=== PATIENT | male | born 1960 | race African-American/Black ===

== ENCOUNTER 2020-01-18 12:14 | Inpatient (IN) | payer OTHER ==
--- NOTE | 2020-01-18 12:42 | BHS.RME ---
Substance Use & Tx History - Substance Use History Alcohol Substance amount: 2-3 pints Vodka Frequency of use: Daily Substance route: Oral Date of Last Use: 01/18/20 (First drink age 19 y. No seizures. Blackouts, last was 2 weeks ago. 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) Physical/Psych/Mental Status - Behavior General Behavior: Increased activity (restlessness, agitation) Eye Contact: Normal - Cooperativeness Cooperativeness: Cooperative - Thinking Thought Processes: Tight Thought content: Future oriented - Physical Health Problems Is patient presently having any pain?: Yes (4 years: right hand) Does patient presently have any injuries (include location): No Does patient currently have a fever: No CIWA Nausea/Vomitin-No Nausea/No Vomiting Muscle Tremors: 2 Anxiety: 2 Agitation: 1-Slight > Activity Paroxysmal Sweats: 3 Orientation: 0-Oriented Tacttile Disturbances: 0-None Auditory Disturbances: 0-None Visual Disturbances: 0-None Headache: 4-Moderately Severe CIWA-Ar Total Score: 12
--- NOTE | 2020-01-18 13:20 | HP ---
CIWA Score Nausea/Vomitin-No Nausea/No Vomiting Muscle Tremors: 2 Anxiety: 2 Agitation: 1-Slight > Activity Paroxysmal Sweats: 3 Orientation: 0-Oriented Tacttile Disturbances: 0-None Auditory Disturbances: 0-None Visual Disturbances: 0-None Headache: 4-Moderately Severe CIWA-Ar Total Score: 12 - Admission Criteria [facility] Guidelines: Admission for Medically Managed Detox: Requires at least one of the followin. CIWA greater than 12 2. Seizures within the past 24 hours 3. Delirium tremens within the past 24 hours 4. Hallucinations within the past 24 hours 5. Acute intervention needed for co occurring medical disorder 6. Acute intervention needed for co occurring psychiatric disorder 7. Severe withdrawal that cannot be handled at a lower level of care (continued vomiting, continued diarrhea, abnormal vital signs) requiring intravenous medication and/or fluids 8. Admitting History and Physical - Admission History of Present Illness: Mr. Nagy presents to [facility] REQUESTING FOR DETOX FROM ALCOHOL. PMH:HTN- on atenolol PSH: None PSYCH: None SOC/DOMICILED: Shared apt with friend Legal: None Substance Use & Tx History - Substance Use History Alcohol Substance amount: 2-3 pints Vodka Frequency of use: Daily Substance route: Oral Date of Last Use: 01/18/20 (First drink age 19 y. No seizures. Blackouts, last was 2 weeks ago. Admits to eye pipefitter) First use: Age 19 History Source: Patient Limitations to Obtaining History: No Limitations - Past Surgical History Past Surgical History: Yes: None - Alcohol/Substance Use Hx Alcohol Use: Yes Number of Drinks Daily: 3 (3 pints of vodka) - Social History Other Social History: Patient is on Social Security disability Admission [facility] Exam Limitations: No Limitations - Ebola screening Have you traveled outside of the country in the last 21 days: No Have you had contact with anyone from an Ebola affected area: No Have you been sick,other than usual withdrawal symptoms: No Do you have a fever: No - Review of Systems Constitutional: No Symptoms Reported EENT: reports: No Symptoms Reported, Other (Rt. sided facial pain) Respiratory: reports: No Symptoms reported Cardiac: reports: No Symptoms Reported GI: reports: No Symptoms Reported : reports: No Symptoms Reported Musculoskeletal: reports: Gout (pt says he is on colchicine) Integumentary: reports: No Symptoms Reported Neuro: reports: No Symptoms reported Endocrine: reports: No Symptoms Reported Hematology: reports: No Symptoms Reported Psychiatric: reports: Judgement Intact, Orientated x3, Agitated, Anxious Other Systems: Reviewed and Negative Patient History - Patient Medical History Hx Anemia: No Hx Hypertension: Yes (taking atenolol) - Smoking Cessation Smoking history: Former smoker Have you smoked in the past 12 months: No If you are a former smoker, when did you quit?: 1998 Initiated information on smoking cessation: No Admission Physical Exam [facility] - Physical General Appearance: Yes: Within Normal Limits, No Apparent Distress, Nourished, Appropriately Dressed HEENTM: Yes: Within Normal Limits, EOMI, Hearing grossly Normal, Normocephalic, Normal Voice, JEFF Respiratory: Yes: Within Normal Limits, Chest Non-Tender, Lungs Clear, Normal Breath Sounds, No Respiratory Distress, No Accessory Muscle Use Neck: Yes: Within Normal Limits, No masses,lesions,Nodules Breast: Yes: Breast Exam Deferred Cardiology: Yes: Within Normal Limits, Regular Rhythm, Regular Rate, S1, S2 Abdominal: Yes: Within Normal Limits, Normal Bowel Sounds, Non Tender, Soft, Distended (with fat) Genitourinary: Yes: Within Normal Limits Back: Yes: Within Normal Limits, Normal Inspection Musculoskeletal: Yes: Within Normal Limits Extremities: Yes: Non-Tender, Other (b/l pitting pedal edema up to lower 2/3 legs) Neurological: Yes: Within Normal Limits, Fully Oriented, Alert, Normal Mood/Affect Integumentary: Yes: Within Normal Limits, Pitting Edema (b/l pitting pedal up to lower 2/3 leg), Other (multiple seborrheic dermatitis on upper back) - Diagnostic (1) Hypertension Current Visit: Yes Status: Acute (2) Alcohol dependence Current Visit: Yes Status: Acute Cleared for Admission [facility] - Detox or Rehab [facility] Level of Care: Medically Managed Screened but not Admitted - Documentation of Visit Screened but not Admitted: No Breathalyzer - Breathalyzer Breathalyzer: 0.022 Urine Drug Screen - Test Device Lot number: [id number] Expiration date: 02/25/21 - Control Is test valid?: Yes - Results Drug screen NEGATIVE: No Urine drug screen results: OXY-Oxycodone Inpatient Rehab Admission - Rehab Decision to Admit Inpatient rehab admission?: No
[2020-01-18] MEDS ORDERED: BISMUTH SUBSALICYLATE 524 MG/30 ML UD PO PRN (13:49)
[2020-01-18] MEDS ORDERED: MAG HYDROX/AL HYDROX/SIMETH 30 ML UNIT-DOSE CUP PO PRN (13:49)
[2020-01-18] MEDS ORDERED: MENTHOL/PHENOL 1 EACH UD MM PRN (13:49)
[2020-01-18] MEDS ORDERED: IBUPROFEN 400 MG TABLET (FP) PO PRN (13:49)
[2020-01-18] MEDS ORDERED: chlordiazePOXIDE HCL 25 MG CAPSULE PO PRN (13:49)
[2020-01-18] MEDS ORDERED: ACETAMINOPHEN 325 MG TABLET (FP) PO PRN (13:49)
[2020-01-18] MEDS ORDERED: METHOCARBAMOL 500 MG TABLET PO PRN (13:49)
[2020-01-18] MEDS ORDERED: MAGNESIUM CITRATE 300 ML BOTTLE PO PRN (13:49)
[2020-01-18] MEDS ORDERED: MAGNESIUM HYDROX 2400MG/30ML ORAL SUSPENSION 30 ML CUP PO PRN (13:49)
[2020-01-18 13:52] VITALS: BMI 33.4
--- NOTE | 2020-01-18 14:19 | PN ---
Teaching Attending Note Name of Resident: Tyrell Shaffer ATTENDING PHYSICIAN STATEMENT I saw and evaluated the patient. I reviewed the resident's note and discussed the case with the resident. I agree with the resident's findings and plan as documented. SUBJECTIVE: I agree with subjective findings of resident OBJECTIVE: I agree with objective findings of resident. ASSESSMENT AND PLAN: I agree with plan for detox for this patient.
[2020-01-18] MEDS ORDERED: ATENOLOL 50 MG TABLET (FP) PO ONE (14:21)
--- NOTE | 2020-01-18 14:52 | EKG ---
Test Reason : Blood Pressure : / mmHG Vent. Rate : 092 BPM Atrial Rate : 092 BPM P-R Int : 126 ms QRS Dur : 074 ms QT Int : 356 ms P-R-T Axes : 072 071 019 degrees QTc Int : 440 ms NORMAL SINUS RHYTHM NONSPECIFIC T WAVE ABNORMALITY ABNORMAL ECG NO PREVIOUS ECGS AVAILABLE Confirmed by KAY MARTÍNEZ, TL ([id number]) on 01/18/2020 2:51:32 PM Referred By: Confirmed By:TL VILLANUEVA MD
[2020-01-18] MEDS: ONDANSETRON *ODT* 4 MG TABLET SL SCH ×2 (15:12→22:21)
[2020-01-18] MEDS: hydrOXYzine PAMOATE 25 MG CAPSULE (FP) PO SCH ×3 (15:12→22:21)
[2020-01-18] MEDS: PRENATAL VITAMINS W/ FOLIC ACID TABLET (FP) PO SCH (15:12)
[2020-01-18 17:27] LABS: HEMATOCRIT 41.1 % (35.4-49); HEMOGLOBIN 13.5 GM/dL (11.7-16.9); MCH 28.2 pg (25.7-33.7); MCHC 32.9 g/dl (32.0-35.9); MEAN CELL VOLUME 85.6 fl (80-96); MEAN PLT VOLUME 9.9 fl (7.5-11.1); PLATELET COUNT 262 K/MM3 (134-434); RDW 15.3 % (11.9-15.9); WHITE BLOOD COUNT 9.4 K/mm3 (4.0-10.0)
[2020-01-18 17:33] LABS: ALBUMIN 4.5 g/dl (3.4-5.0); BILIRUBIN,TOTAL 1.1 mg/dL (0.2-1); BLOOD UREA NITROGEN 16.4 mg/dL (7-18); CALCIUM 10.3 mg/dL (8.5-10.1); CREATININE 1.2 mg/dL (0.55-1.3); POTASSIUM 4.1 mmol/L (3.5-5.1); TOT PROT 7.5 g/dl (6.4-8.2)
[2020-01-18] MEDS: chlordiazePOXIDE HCL 25 MG CAPSULE PO SCH ×2 (17:44→22:21)
[2020-01-18] MEDS: THIAMINE HCL 100 MG TABLET (FP) PO SCH (22:21)
[2020-01-18] MEDS: MELATONIN 5 MG TABLETS PO SCH (22:21)
[2020-01-19] MEDS: chlordiazePOXIDE HCL 25 MG CAPSULE PO SCH ×4 (06:20→22:09)
[2020-01-19] MEDS: ONDANSETRON *ODT* 4 MG TABLET SL SCH ×3 (06:20→22:08)
[2020-01-19] MEDS: hydrOXYzine PAMOATE 25 MG CAPSULE (FP) PO SCH ×5 (06:20→22:08)
[2020-01-19] MEDS ORDERED: ATENOLOL 25 MG TABLET (FP) PO SCH (10:00)
[2020-01-19] MEDS: PRENATAL VITAMINS W/ FOLIC ACID TABLET (FP) PO SCH (10:11)
[2020-01-19] MEDS ORDERED: ATENOLOL 50 MG TABLET (FP) PO SCH (10:14)
--- NOTE | 2020-01-19 10:21 | PN ---
"S CIWA - CIWA Score Nausea/Vomitin-Mild Nausea/No Vomiting (no vomiting) Muscle Tremors: 4-Moderate,w/Arms Extend Anxiety: 4-Mod. Anxious/Guarded Agitation: 3 Paroxysmal Sweats: 1-Minimal Palms Moist Orientation: 0-Oriented Tacttile Disturbances: 0-None Auditory Disturbances: 0-None Visual Disturbances: 0-None Headache: 0-None Present CIWA-Ar Total Score: 13 B[facility] Progress Note (SOAP) Subjective: Pt c/o withdrawals- nausea body aches diarrhea intermittent sleep hot/cold chills intermittent sleep Pt reports he takes percocets 40 mg daily for pain. Reports he takes it for Gout pain with his prescriber and wants to get off and detox if necessary while in detox. Confirmed with [facility] at [facility]: that pt on Amlodipine 10 mg po daily as well as Percocet 10-325 mg po 4 times daily. Last p/u on 12/26/19 with 120 tabs. PNP Search did not show opioid Rx as can be seen in search below. Confidential Drug Utilization Report Search Terms: lois lambert, 02/18/1968earch Date: 01/19/2020 10:17:05 AM The Drug Utilization Report below displays all of the controlled substance prescriptions, if any, that your patient has filled in the last twelve months. The information displayed on this report is compiled from pharmacy submissions to the Department, and accurately reflects the information as submitted by the pharmacies. This report was requested by: Argelia Yanez | Reference #: [id number] There are no results for the search terms that you entered. Objective: 01/19/20 11:43 Vital Signs - 24 hr 01/18/20 01/18/20 01/18/20 13:47 15:10 16:33 Temperature 98.1 F 97.7 F 98.2 F Pulse Rate 99 H 94 H 95 H Respiratory 18 18 17 Rate Blood Pressure 141/85 150/88 133/81 O2 Sat by Pulse 96 Oximetry (%) 01/18/20 01/19/20 21:00 06:35 Temperature 98.0 F 97.5 F L Pulse Rate 92 H 87 Respiratory 20 18 Rate Blood Pressure 150/83 135/76 O2 Sat by Pulse 98 97 Oximetry (%) Laboratory Tests 01/18/20 01/18/20 01/18/20 14:00 14:00 14:00 WBC 9.4 RBC 4.80 Hgb 13.5 Hct 41.1 MCV 85.6 MCH 28.2 MCHC 32.9 RDW 15.3 Plt Count 262 MPV 9.9 Sodium 138 Potassium 4.1 Chloride 103 Carbon Dioxide 22 Anion Gap 13 BUN 16.4 Creatinine 1.2 Est GFR (CKD-EPI)AfAm 77.33 Est GFR (CKD-EPI)NonAf 66.72 Random Glucose 121 H Calcium 10.3 H Total Bilirubin 1.1 H AST 68 H ALT 50 Alkaline Phosphatase 107 Total Protein 7.5 Albumin 4.5 Syphilis Serology Reactive A* RPR Titer 01/18/20 14:00 WBC RBC Hgb Hct MCV MCH MCHC RDW Plt Count MPV Sodium Potassium Chloride Carbon Dioxide Anion Gap BUN Creatinine Est GFR (CKD-EPI)AfAm Est GFR (CKD-EPI)NonAf Random Glucose Calcium Total Bilirubin AST ALT Alkaline Phosphatase Total Protein Albumin Syphilis Serology RPR Titer Reactive 1:1 H Utox on admission was (+)oxycodone Assessment: 01/19/20 11:43 withdrawal sx Plan: cont detox increase po fluids maintain safety Start moderate Methadone taper"
[2020-01-19] MEDS ORDERED: cloNIDine HCL 0.1 MG TABLET PO PRN (12:35)
[2020-01-19] MEDS ORDERED: METHADONE HCL 10 MG TABLET (FOR DETOX USE ONLY) PO ONE (13:00)
--- NOTE | 2020-01-19 13:56 | PN ---
Teaching Attending Note Name of Resident: Tyrell Shaffer ATTENDING PHYSICIAN STATEMENT I saw and evaluated the patient. I reviewed the resident's note and discussed the case with the resident. I agree with the resident's findings and plan as documented. SUBJECTIVE: I agree with resident's subjective findings OBJECTIVE: I agree with resident's objective findings ASSESSMENT AND PLAN: I agree with resident's detox plans.
[2020-01-19] MEDS: ATENOLOL 50 MG TABLET (FP) PO SCH (15:08)
--- NOTE | 2020-01-19 15:49 | PN ---
BHS COWS - Scale Resting Pulse: 1= [place] 81-100 Sweatin= Chills/Flushing Restless Observation: 3= Extraneous Movement Pupil Size: 0= Normal to Room Light Bone or Joint Aches: 4=Acute Joint/Muscle Pain Runny Nose/ Eye Tearin= Nasal Congestion GI Upset > 30mins: 2= Nausea/Diarrhea Tremor Observation of Outstretched Hands: 2= Slight Tremor Visible Yawning Observation: 0= None Anxiety or Irritability: 2=Irritable/Anxious Goose Flesh Skin: 0=Smooth Skin COWS Score: 16
[2020-01-19] MEDS: ACETAMINOPHEN 325 MG TABLET (FP) PO PRN (17:59)
[2020-01-19] MEDS: MELATONIN 5 MG TABLETS PO SCH (22:08)
[2020-01-19] MEDS: COLCHICINE 0.6 MG CAP PO SCH (22:08)
[2020-01-19] MEDS: THIAMINE HCL 100 MG TABLET (FP) PO SCH (22:09)
[2020-01-20] MEDS: hydrOXYzine PAMOATE 25 MG CAPSULE (FP) PO SCH ×5 (06:00→22:13)
[2020-01-20] MEDS: chlordiazePOXIDE HCL 25 MG CAPSULE PO SCH ×4 (06:00→22:12)
[2020-01-20] MEDS: ONDANSETRON *ODT* 4 MG TABLET SL SCH ×3 (06:00→22:12)
[2020-01-20] MEDS ORDERED: amLODIPine BESYLATE 10 MG TABLET (FP) PO SCH (10:00)
[2020-01-20] MEDS ORDERED: METHADONE HCL 5 MG TABLET (FOR DETOX USE ONLY) PO ONE (10:00)
--- NOTE | 2020-01-20 10:45 | PN ---
[facility] CIWA - CIWA Score Nausea/Vomitin-No Nausea/No Vomiting Muscle Tremors: 2 Anxiety: 2 Agitation: 1-Slight > Activity Paroxysmal Sweats: 2 Orientation: 0-Oriented Tacttile Disturbances: 0-None Auditory Disturbances: 2-Mild Harshness/Frighten Visual Disturbances: 0-None Headache: 0-None Present CIWA-Ar Total Score: 9 S COWS - Scale Resting Pulse: 1= [place] 81-100 Sweatin= Chills/Flushing Restless Observation: 1= Difficult to Sit Still Pupil Size: 0= Normal to Room Light Bone or Joint Aches: 1= Mild Discomfort Runny Nose/ Eye Tearin= None GI Upset > 30mins: 0= None Tremor Observation of Outstretched Hands: 2= Slight Tremor Visible Yawning Observation: 0= None Anxiety or Irritability: 1=Feels Anxious/Irritable Goose Flesh Skin: 0=Smooth Skin COWS Score: 7 [facility] Progress Note (SOAP) Subjective: Complaints of body aches, chills, anxiety and tremors. Objective: 01/20/20 10:43 Vital Signs 01/20/20 06:50 Temperature 97.8 F Pulse Rate 86 Respiratory 18 Rate Blood Pressure 114/64 O2 Sat by Pulse 97 Oximetry (%) Laboratory Last Values WBC 9.4 K/mm3 (4.0-10.0) 01/18/20 14:00 RBC 4.80 M/mm3 (4.00-5.60) 01/18/20 14:00 Hgb 13.5 GM/dL (11.7-16.9) 01/18/20 14:00 Hct 41.1 % (35.4-49) 01/18/20 14:00 MCV 85.6 fl (80-96) 01/18/20 14:00 MCH 28.2 pg (25.7-33.7) 01/18/20 14:00 MCHC 32.9 g/dl (32.0-35.9) 01/18/20 14:00 RDW 15.3 % (11.9-15.9) 01/18/20 14:00 Plt Count 262 K/MM3 (134-434) 01/18/20 14:00 MPV 9.9 fl (7.5-11.1) 01/18/20 14:00 Sodium 138 mmol/L (136-145) 01/18/20 14:00 Potassium 4.1 mmol/L (3.5-5.1) 01/18/20 14:00 Chloride 103 mmol/L (98-107) 01/18/20 14:00 Carbon Dioxide 22 mmol/L (21-32) 01/18/20 14:00 Anion Gap 13 MMOL/L (8-16) 01/18/20 14:00 BUN 16.4 mg/dL (7-18) 01/18/20 14:00 Creatinine 1.2 mg/dL (0.55-1.3) 01/18/20 14:00 Est GFR (CKD-EPI)AfAm 77.33 01/18/20 14:00 Est GFR (CKD-EPI)NonAf 66.72 01/18/20 14:00 Random Glucose 121 mg/dL (74-106) H 01/18/20 14:00 Calcium 10.3 mg/dL (8.5-10.1) H 01/18/20 14:00 Total Bilirubin 1.1 mg/dL (0.2-1) H 01/18/20 14:00 AST 68 U/L (15-37) H 01/18/20 14:00 ALT 50 U/L (13-61) 01/18/20 14:00 Alkaline Phosphatase 107 U/L (45-117) 01/18/20 14:00 Total Protein 7.5 g/dl (6.4-8.2) 01/18/20 14:00 Albumin 4.5 g/dl (3.4-5.0) 01/18/20 14:00 Syphilis Serology Reactive (NONREACTIVE) A* 01/18/20 14:00 RPR Titer Reactive 1:1 (NONREACTIVE) H 01/18/20 14:00 COVID-19 ([facility]) Not detected (Not Detected) 01/18/20 14:30 Labs noted with RPR reactive ( already addressed). Assessment: 01/20/20 10:45 Alert and oriented x3, in no acute respiratory distress. Full ROM, ambulatory without assistance. Withdrawal symptoms. Plan: Continue detox protocol.
[2020-01-20] MEDS: ASPIRIN COATED 81 MG TABLET.EC PO SCH (10:56)
[2020-01-20] MEDS: PRENATAL VITAMINS W/ FOLIC ACID TABLET (FP) PO SCH (10:56)
[2020-01-20] MEDS: amLODIPine BESYLATE 10 MG TABLET (FP) PO SCH (10:56)
[2020-01-20] MEDS: ATENOLOL 50 MG TABLET (FP) PO SCH (10:57)
[2020-01-20] MEDS: PANTOPRAZOLE 20 MG TABLET PO SCH (10:57)
[2020-01-20] MEDS: COLCHICINE 0.6 MG CAP PO SCH ×2 (10:59→23:35)
[2020-01-20] MEDS: ACETAMINOPHEN 325 MG TABLET (FP) PO PRN (17:38)
[2020-01-20] MEDS: THIAMINE HCL 100 MG TABLET (FP) PO SCH (22:13)
[2020-01-20] MEDS: ATORVASTATIN CA 20 MG TABLET (FP) PO SCH (22:13)
[2020-01-20] MEDS: MELATONIN 5 MG TABLETS PO SCH (22:13)
[2020-01-21] MEDS ORDERED: chlordiazePOXIDE HCL 10 MG CAPSULE PO PRN
[2020-01-21] MEDS: hydrOXYzine PAMOATE 25 MG CAPSULE (FP) PO SCH ×5 (05:54→22:05)
[2020-01-21] MEDS: chlordiazePOXIDE HCL 10 MG CAPSULE PO SCH ×4 (05:54→22:04)
[2020-01-21] MEDS: ONDANSETRON *ODT* 4 MG TABLET SL SCH (05:54)
[2020-01-21] MEDS ORDERED: METHADONE HCL 10 MG TABLET (FOR DETOX USE ONLY) PO ONE (10:00)
[2020-01-21] MEDS: amLODIPine BESYLATE 10 MG TABLET (FP) PO SCH (10:37)
[2020-01-21] MEDS: PRENATAL VITAMINS W/ FOLIC ACID TABLET (FP) PO SCH (10:37)
[2020-01-21] MEDS: ASPIRIN COATED 81 MG TABLET.EC PO SCH (10:37)
[2020-01-21] MEDS: COLCHICINE 0.6 MG CAP PO SCH ×2 (10:38→22:05)
[2020-01-21] MEDS: PANTOPRAZOLE 20 MG TABLET PO SCH (10:38)
[2020-01-21] MEDS: ATENOLOL 50 MG TABLET (FP) PO SCH (10:54)
--- NOTE | 2020-01-21 11:00 | PN ---
[facility] CIWA - CIWA Score Nausea/Vomitin-Mild Nausea/No Vomiting Muscle Tremors: 1-None Visible, but Ignacio Anxiety: 1-Mildly Anxious Agitation: 1-Slight > Activity Paroxysmal Sweats: No Perspiration Orientation: 0-Oriented Tacttile Disturbances: 0-None Auditory Disturbances: 0-None Visual Disturbances: 2-Mild Sensitivity Headache: 0-None Present CIWA-Ar Total Score: 6 S COWS - Scale Resting Pulse: 1= [place] 81-100 Sweatin= No chills or Flushing Restless Observation: 0= Sits Still Pupil Size: 1= Pupils >than Normal Bone or Joint Aches: 1= Mild Discomfort Runny Nose/ Eye Tearin= None GI Upset > 30mins: 2= Nausea/Diarrhea Tremor Observation of Outstretched Hands: 0= None Yawning Observation: 0= None Anxiety or Irritability: 1=Feels Anxious/Irritable Goose Flesh Skin: 0=Smooth Skin COWS Score: 6 S Progress Note (SOAP) Subjective: 59 years old male admitted on 01/18/20 for alcohol and opiate withdrawal sx management treating with librium and methadone detox regiment mild nausea reject zofran discontinue zofran every eight hours encourage medication assisted treatment program recommend case picker narcan from pharmacy Objective: 01/21/20 11:03 Vital Signs - 24 hr 01/20/20 01/20/20 01/20/20 12:55 16:55 20:00 Temperature 98.5 F 98.2 F 98.0 F Pulse Rate 96 H 90 81 Respiratory 20 18 18 Rate Blood Pressure 136/78 126/77 114/69 O2 Sat by Pulse 95 95 Oximetry (%) 01/21/20 01/21/20 06:00 10:00 Temperature 98.2 F 98.2 F Pulse Rate 86 90 Respiratory 18 20 Rate Blood Pressure 132/75 130/70 O2 Sat by Pulse 96 Oximetry (%) Laboratory Tests 01/18/20 01/18/20 01/18/20 14:00 14:00 14:00 WBC 9.4 RBC 4.80 Hgb 13.5 Hct 41.1 MCV 85.6 MCH 28.2 MCHC 32.9 RDW 15.3 Plt Count 262 MPV 9.9 Sodium 138 Potassium 4.1 Chloride 103 Carbon Dioxide 22 Anion Gap 13 BUN 16.4 Creatinine 1.2 Est GFR (CKD-EPI)AfAm 77.33 Est GFR (CKD-EPI)NonAf 66.72 Random Glucose 121 H Calcium 10.3 H Total Bilirubin 1.1 H AST 68 H ALT 50 Alkaline Phosphatase 107 Total Protein 7.5 Albumin 4.5 Syphilis Serology Reactive A* RPR Titer COVID-19 ([facility]) 01/18/20 01/18/20 14:00 14:30 WBC RBC Hgb Hct MCV MCH MCHC RDW Plt Count MPV Sodium Potassium Chloride Carbon Dioxide Anion Gap BUN Creatinine Est GFR (CKD-EPI)AfAm Est GFR (CKD-EPI)NonAf Random Glucose Calcium Total Bilirubin AST ALT Alkaline Phosphatase Total Protein Albumin Syphilis Serology RPR Titer Reactive 1:1 H COVID-19 ([facility]) Not detected fasting pending 01/21/20 11:05 history of syphilis reactive and treated Assessment: 01/21/20 11:05 alcohol and opiate withdrawal Plan: librium and methadone regiments
[2020-01-21] MEDS: ACETAMINOPHEN 325 MG TABLET (FP) PO PRN (14:02)
[2020-01-21] MEDS: ATORVASTATIN CA 20 MG TABLET (FP) PO SCH (22:04)
[2020-01-21] MEDS: THIAMINE HCL 100 MG TABLET (FP) PO SCH (22:05)
[2020-01-21] MEDS: MELATONIN 5 MG TABLETS PO SCH (22:05)
[2020-01-22] MEDS ORDERED: METHADONE HCL 5 MG TABLET (FOR DETOX USE ONLY) PO ONE (06:00)
[2020-01-22] MEDS: chlordiazePOXIDE HCL 10 MG CAPSULE PO SCH ×2 (06:09→17:41)
[2020-01-22] MEDS: hydrOXYzine PAMOATE 25 MG CAPSULE (FP) PO SCH ×5 (06:09→22:17)
[2020-01-22] MEDS: ACETAMINOPHEN 325 MG TABLET (FP) PO PRN ×2 (06:12→10:52)
[2020-01-22] MEDS: COLCHICINE 0.6 MG CAP PO SCH ×2 (10:48→23:34)
[2020-01-22] MEDS: PRENATAL VITAMINS W/ FOLIC ACID TABLET (FP) PO SCH (10:48)
[2020-01-22] MEDS: PANTOPRAZOLE 20 MG TABLET PO SCH (10:49)
[2020-01-22] MEDS: amLODIPine BESYLATE 10 MG TABLET (FP) PO SCH (10:49)
[2020-01-22] MEDS: ATENOLOL 50 MG TABLET (FP) PO SCH (10:49)
[2020-01-22] MEDS: ASPIRIN COATED 81 MG TABLET.EC PO SCH (10:49)
--- NOTE | 2020-01-22 12:08 | PN ---
S CIWA - CIWA Score Nausea/Vomitin-No Nausea/No Vomiting Muscle Tremors: 2 Anxiety: 4-Mod. Anxious/Guarded Agitation: 0-Normal Activity Paroxysmal Sweats: 1-Minimal Palms Moist Orientation: 0-Oriented Tacttile Disturbances: 0-None Auditory Disturbances: 0-None Visual Disturbances: 0-None Headache: 0-None Present CIWA-Ar Total Score: 7 [facility] Progress Note (SOAP) Subjective: Pt c/o anxiety sl tremors body aches sl sweats/chills Objective: 01/22/20 12:06 Vital Signs - 24 hr 01/21/20 01/21/20 01/21/20 13:22 17:02 20:31 Temperature 98.2 F 98.0 F 98.6 F Pulse Rate 95 H 97 H 94 H Respiratory 20 18 18 Rate Blood Pressure 133/74 139/81 109/62 O2 Sat by Pulse 96 95 Oximetry (%) 01/22/20 01/22/20 01/22/20 06:06 07:30 09:30 Temperature 98.6 F 97.7 F Pulse Rate 108 H 92 H 105 H Respiratory 18 18 18 Rate Blood Pressure 153/91 130/75 141/92 O2 Sat by Pulse 96 97 Oximetry (%) Laboratory Tests 01/18/20 01/18/20 01/18/20 14:00 14:00 14:00 WBC 9.4 RBC 4.80 Hgb 13.5 Hct 41.1 MCV 85.6 MCH 28.2 MCHC 32.9 RDW 15.3 Plt Count 262 MPV 9.9 Sodium 138 Potassium 4.1 Chloride 103 Carbon Dioxide 22 Anion Gap 13 BUN 16.4 Creatinine 1.2 Est GFR (CKD-EPI)AfAm 77.33 Est GFR (CKD-EPI)NonAf 66.72 Random Glucose 121 H Fasting Glucose Calcium 10.3 H Total Bilirubin 1.1 H AST 68 H ALT 50 Alkaline Phosphatase 107 Total Protein 7.5 Albumin 4.5 Syphilis Serology Reactive A* RPR Titer COVID-19 ([facility]) 01/18/20 01/18/20 01/22/20 14:00 14:30 08:00 WBC RBC Hgb Hct MCV MCH MCHC RDW Plt Count MPV Sodium Potassium Chloride Carbon Dioxide Anion Gap BUN Creatinine Est GFR (CKD-EPI)AfAm Est GFR (CKD-EPI)NonAf Random Glucose Fasting Glucose 139 H Calcium Total Bilirubin AST ALT Alkaline Phosphatase Total Protein Albumin Syphilis Serology RPR Titer Reactive 1:1 H COVID-19 ([facility]) Not detected Assessment: 01/22/20 12:07 mild withdrawal sx Plan: cont detox increase po fluids maintain safety
[2020-01-22] MEDS: THIAMINE HCL 100 MG TABLET (FP) PO SCH (22:17)
[2020-01-22] MEDS: MELATONIN 5 MG TABLETS PO SCH (22:17)
[2020-01-22] MEDS: ATORVASTATIN CA 20 MG TABLET (FP) PO SCH (22:17)
[2020-01-23] MEDS ORDERED: chlordiazePOXIDE HCL 10 MG CAPSULE PO ONE (05:00)
[2020-01-23] MEDS: hydrOXYzine PAMOATE 25 MG CAPSULE (FP) PO SCH ×2 (06:21→10:04)
[2020-01-23] MEDS: COLCHICINE 0.6 MG CAP PO SCH (10:04)
[2020-01-23] MEDS: ASPIRIN COATED 81 MG TABLET.EC PO SCH (10:04)
[2020-01-23] MEDS: amLODIPine BESYLATE 10 MG TABLET (FP) PO SCH (10:04)
[2020-01-23] MEDS: PANTOPRAZOLE 20 MG TABLET PO SCH (10:04)
[2020-01-23] MEDS: PRENATAL VITAMINS W/ FOLIC ACID TABLET (FP) PO SCH (10:04)
[2020-01-23] MEDS: ATENOLOL 50 MG TABLET (FP) PO SCH (10:04)
[2020-01-23 10:32] VITALS: BP 126/74; PULSE 95; TEMP 97.7
--- NOTE | 2020-01-23 10:41 | DS ---
[facility] Detox Discharge Summary Admission Date: 01/18/20 Discharge Date: 01/23/20 - History Present History: Alcohol Dependence, Opioid Dependence Additional Comments: Pt reports he has own meds at home. Pt to follow up with medical provider at [facility] for medical management. Pertinent Past History: HTN HLD Hx Syphilis Hx Gout Hx Arthritis GERD - Physical Exam Results Vital Signs: Vital Signs Temperature 97.7 F 01/23/20 09:02 Pulse Rate 95 H 01/23/20 09:02 Respiratory Rate 18 01/23/20 09:02 Blood Pressure 126/74 01/23/20 09:02 O2 Sat by Pulse Oximetry (%) 96 01/23/20 09:02 Alert o x 3 nad oob ambulating with steady gait cardiac;s1 s2, rrr lungs:ctab abdomen:+++fatty,+bs,nt,nd extremities:no edema;skin intact. Pertinent Admission Physical Exam Findings: Laboratory Tests 01/18/20 01/18/20 01/18/20 14:00 14:00 14:00 WBC 9.4 RBC 4.80 Hgb 13.5 Hct 41.1 MCV 85.6 MCH 28.2 MCHC 32.9 RDW 15.3 Plt Count 262 MPV 9.9 Sodium 138 Potassium 4.1 Chloride 103 Carbon Dioxide 22 Anion Gap 13 BUN 16.4 Creatinine 1.2 Est GFR (CKD-EPI)AfAm 77.33 Est GFR (CKD-EPI)NonAf 66.72 Random Glucose 121 H Fasting Glucose Calcium 10.3 H Total Bilirubin 1.1 H AST 68 H ALT 50 Alkaline Phosphatase 107 Total Protein 7.5 Albumin 4.5 Syphilis Serology Reactive A* RPR Titer COVID-19 ([facility]) 01/18/20 01/18/20 01/22/20 14:00 14:30 08:00 WBC RBC Hgb Hct MCV MCH MCHC RDW Plt Count MPV Sodium Potassium Chloride Carbon Dioxide Anion Gap BUN Creatinine Est GFR (CKD-EPI)AfAm Est GFR (CKD-EPI)NonAf Random Glucose Fasting Glucose 139 H Calcium Total Bilirubin AST ALT Alkaline Phosphatase Total Protein Albumin Syphilis Serology RPR Titer Reactive 1:1 H COVID-19 ([facility]) Not detected - Treatment Hospital Course: Detox Protocol Followed, Detoxed Safely, Responded well, Discharged Condition Good, Rehab Referral Accepted Patient has Accepted a Rehab Referral to: [facility] [place] - Medication Discharge Medications: Ambulatory Orders Atenolol [Tenormin -] 50 mg PO DAILY 01/18/20 Amlodipine Besylate [Norvasc -] 10 mg PO DAILY 01/19/20 Aspirin Coated [Ecotrin -] 81 mg PO DAILY 01/19/20 Atorvastatin Calcium [Lipitor] 20 mg PO DAILY 01/19/20 Colchicine 0.6 mg PO BID 01/19/20 Haloperidol [Haldol -] 5 mg PO TID 01/19/20 Naproxen 500 mg PO BID 01/19/20 Omeprazole 20 mg PO DAILY 01/19/20 Sertraline HCl 100 mg PO DAILY 01/19/20 Naloxone HCl [Narcan] 4 mg NS ASDIR PRN #1 spray 01/21/20 - Diagnosis (1) Alcohol dependence with uncomplicated withdrawal Status: Acute (2) Opioid dependence, uncomplicated Status: Acute (3) Hypertension Status: Acute Qualifiers: Hypertension type: unspecified Qualified Code(s): I10 - Essential (primary) hypertension (4) Hyperlipidemia Status: Chronic Qualifiers: Hyperlipidemia type: unspecified Qualified Code(s): E78.5 - Hyperlipidemia, unspecified (5) Hx of gastroesophageal reflux (GERD) Status: Chronic (6) Personal history of gout Status: Chronic - AMA Did Patient Leave Against Medical Advice: No
== END 2020-01-23 10:10 | disposition home or self-care (01) | DRG 773 ==
LOC: YASAS 12:14 → Y5N DETOX 13:26
PROVIDERS: ADMIT Allergy & Immunology; ATTEND Allergy & Immunology
PROC: HZ2ZZZZ Detoxification Services for Substance Abuse Treatment (ICD-10-PCS; principal; 2020-01-18)
DX: F10.230 Alcohol dependence with withdrawal, uncomplicated (principal); F11.20 Opioid dependence, uncomplicated; E78.5 Hyperlipidemia, unspecified; I10 Essential (primary) hypertension; K21.9 Gastro-esophageal reflux disease without esophagitis; M10.9 Gout, unspecified; Z20.2 Contact with and (suspected) exposure to infections with a predominantly sexual mode of transmission; Z86.19 Personal history of other infectious and parasitic diseases
CPT/HCPCS: 36415; 71046-TC-FY; 80053; 82947; 85027; 86593; 86780; 93005; 93010; Q0162; U0003

== ENCOUNTER 2020-09-03 09:41 | Inpatient (IN) | payer OTHER ==
[2020-09-03 10:47] VITALS: BMI 20.9
[2020-09-03] MEDS ORDERED: IBUPROFEN 400 MG TABLET (FP) PO PRN (11:32)
[2020-09-03] MEDS ORDERED: chlordiazePOXIDE HCL 25 MG CAPSULE PO PRN (11:32)
[2020-09-03] MEDS ORDERED: ACETAMINOPHEN 325 MG TABLET (FP) PO PRN ×2 (11:32)
[2020-09-03] MEDS ORDERED: MAGNESIUM HYDROX 2400MG/30ML ORAL SUSPENSION 30 ML CUP PO PRN (11:32)
[2020-09-03] MEDS ORDERED: MENTHOL/PHENOL 1 EACH UD MM PRN (11:32)
[2020-09-03] MEDS ORDERED: MAG HYDROX/AL HYDROX/SIMETH 30 ML UNIT-DOSE CUP PO PRN (11:32)
[2020-09-03] MEDS ORDERED: BISMUTH SUBSALICYLATE 262 MG/15 ML BTL PO PRN (11:32)
[2020-09-03] MEDS ORDERED: NICOTINE POLACRILEX 2 MG GUM BUC PRN (11:32)
[2020-09-03] MEDS ORDERED: ONDANSETRON *ODT* 4 MG TABLET SL PRN (11:32)
[2020-09-03] MEDS ORDERED: METHOCARBAMOL 500 MG TABLET PO PRN (11:32)
[2020-09-03] MEDS ORDERED: MAGNESIUM CITRATE 300 ML BOTTLE PO PRN (11:32)
[2020-09-03] MEDS: PRENATAL VITAMINS W/ FOLIC ACID TABLET (FP) PO SCH (12:09)
[2020-09-03] MEDS: chlordiazePOXIDE HCL 25 MG CAPSULE PO SCH ×3 (12:10→23:06)
[2020-09-03] MEDS: hydrOXYzine PAMOATE 25 MG CAPSULE (FP) PO SCH ×3 (14:26→23:06)
[2020-09-03 14:28] LABS: HEMOGLOBIN 14.1 GM/dL (11.7-16.9); MCH 27.9 pg (25.7-33.7); MCHC 33.4 g/dl (32.0-35.9); MEAN CELL VOLUME 83.5 fl (80-96); MEAN PLT VOLUME 9.8 fl (7.5-11.1); PLATELET COUNT 245 K/MM3 (134-434); RBC 5.03 M/mm3 (4.00-5.60); RDW 15.2 % (11.9-15.9); WHITE BLOOD COUNT 8.4 K/mm3 (4.0-10.0)
[2020-09-03 14:29] LABS: ALBUMIN 4.5 g/dl (3.4-5.0); BLOOD UREA NITROGEN 18.2 mg/dL (7-18); CALCIUM 9.9 mg/dL (8.5-10.1)
[2020-09-03 14:32] LABS: CREATININE 1.2 mg/dL (0.55-1.3)
[2020-09-03 14:34] LABS: BILIRUBIN,TOTAL 1.1 mg/dL (0.2-1); TOT PROT 7.6 g/dl (6.4-8.2)
[2020-09-03] MEDS ORDERED: MELATONIN 5 MG TABLETS PO SCH (22:00)
[2020-09-03] MEDS ORDERED: THIAMINE HCL 100 MG TABLET (FP) PO SCH (22:00)
[2020-09-04] MEDS: chlordiazePOXIDE HCL 25 MG CAPSULE PO SCH ×2 (05:22→11:38)
[2020-09-04] MEDS: hydrOXYzine PAMOATE 25 MG CAPSULE (FP) PO SCH ×2 (05:23→11:33)
[2020-09-04] MEDS ORDERED: chlordiazePOXIDE HCL 25 MG CAPSULE PO ONE (11:22)
[2020-09-04] MEDS: PRENATAL VITAMINS W/ FOLIC ACID TABLET (FP) PO SCH (11:37)
[2020-09-04] MEDS ORDERED: cloNIDine HCL 0.1 MG TABLET PO PRN (11:37)
[2020-09-04] MEDS ORDERED: amLODIPine BESYLATE 10 MG TABLET (FP) PO SCH (11:45)
[2020-09-04] MEDS ORDERED: ATENOLOL 50 MG TABLET (FP) PO SCH (11:45)
[2020-09-04] MEDS ORDERED: ASPIRIN 81 MG CHEWABLE TABLETS PO SCH (11:45)
[2020-09-04] MEDS ORDERED: ATORVASTATIN CA 20 MG TABLET (FP) PO SCH (11:45)
[2020-09-04 13:02] VITALS: BP 140/90; PULSE 110; TEMP 97.3
[2020-09-04] MEDS ORDERED: COLCHICINE 0.6 MG TAB PO SCH (22:00)
[2020-09-05] MEDS ORDERED: chlordiazePOXIDE HCL 25 MG CAPSULE PO SCH (05:00)
[2020-09-06] MEDS ORDERED: chlordiazePOXIDE HCL 10 MG CAPSULE PO PRN
[2020-09-06] MEDS ORDERED: chlordiazePOXIDE HCL 10 MG CAPSULE PO SCH (05:00)
[2020-09-07] MEDS ORDERED: chlordiazePOXIDE HCL 10 MG CAPSULE PO SCH (05:00)
[2020-09-08] MEDS ORDERED: chlordiazePOXIDE HCL 10 MG CAPSULE PO ONE (05:00)
== END 2020-09-04 14:10 | disposition left against medical advice (07) | DRG 770 ==
LOC: YASAS 09:41 → Y3N 11:16
PROVIDERS: ADMIT Allergy & Immunology; ATTEND Allergy & Immunology
PROC: HZ2ZZZZ Detoxification Services for Substance Abuse Treatment (ICD-10-PCS; principal; 2020-09-03)
DX: F10.230 Alcohol dependence with withdrawal, uncomplicated (principal); F11.20 Opioid dependence, uncomplicated; F32.9 Major depressive disorder, single episode, unspecified; E78.5 Hyperlipidemia, unspecified; I10 Essential (primary) hypertension; K21.9 Gastro-esophageal reflux disease without esophagitis; M10.9 Gout, unspecified; Z86.19 Personal history of other infectious and parasitic diseases
CPT/HCPCS: 36415; 80053; 85027; 86593; 86780; C9803; J0735; U0003

== ENCOUNTER 2021-09-29 11:22 | Inpatient (IN) | payer OTHER ==
[2021-09-29] MEDS ORDERED: NICOTINE 10 MG CARTRIDGE (INHALER) IH PRN (12:03)
[2021-09-29] MEDS ORDERED: LOPERAMIDE HCL 2 MG CAPSULE PO PRN (12:03)
[2021-09-29] MEDS ORDERED: diazePAM 5 MG TABLET PO PRN (12:03)
[2021-09-29] MEDS ORDERED: IBUPROFEN 400 MG TABLET (FP) PO PRN (12:03)
[2021-09-29] MEDS ORDERED: cloNIDine HCL 0.1 MG TABLET PO ONE (12:03)
[2021-09-29] MEDS ORDERED: MAGNESIUM CITRATE 300 ML BOTTLE PO PRN (12:03)
[2021-09-29] MEDS ORDERED: MENTHOL/PHENOL 1 EACH UD MM PRN (12:03)
[2021-09-29] MEDS ORDERED: MAG HYDROX/AL HYDROX/SIMETH 30 ML UNIT-DOSE CUP PO PRN (12:03)
[2021-09-29] MEDS ORDERED: chlordiazePOXIDE HCL 25 MG CAPSULE PO PRN (12:03)
[2021-09-29] MEDS ORDERED: BUPRENORPHINE HCL 150 MCG, BUPRENORPHINE HCL 75 MCG BC ONE (12:03)
[2021-09-29] MEDS ORDERED: ACETAMINOPHEN 325 MG TABLET (FP) PO PRN ×2 (12:03)
[2021-09-29] MEDS ORDERED: DICYCLOMINE HCL 10 MG CAPSULE PO PRN (12:03)
[2021-09-29] MEDS ORDERED: MAGNESIUM HYDROX 2400MG/30ML ORAL SUSPENSION 30 ML CUP PO PRN (12:03)
[2021-09-29] MEDS ORDERED: BISMUTH SUBSALICYLATE 524 MG/30 ML PO PRN (12:03)
[2021-09-29] MEDS ORDERED: ONDANSETRON *ODT* 4 MG TABLET SL PRN (12:03)
[2021-09-29] MEDS ORDERED: BUPRENORPHINE HCL 150 MCG FILM BC ONE (12:44)
[2021-09-29] MEDS ORDERED: BUPRENORPHINE HCL 75 MCG FILM BC ONE (12:44)
[2021-09-29] MEDS: PRENATAL VITAMINS W/ FOLIC ACID TABLET (FP) PO SCH (15:31)
[2021-09-29] MEDS: hydrOXYzine PAMOATE 25 MG CAPSULE (FP) PO SCH ×3 (15:31→22:18)
[2021-09-29] MEDS ORDERED: cloNIDine HCL 0.1 MG TABLET PO PRN (16:03)
[2021-09-29 16:12] LABS: ALBUMIN 4.9 g/dl (3.4-5.0); CALCIUM 10.5 mg/dL (8.5-10.1)
[2021-09-29 16:13] LABS: BLOOD UREA NITROGEN 12.8 mg/dL (7-18)
[2021-09-29 16:15] LABS: CREATININE 1.7 mg/dL (0.55-1.3)
[2021-09-29 16:17] LABS: BILIRUBIN,TOTAL 0.9 mg/dL (0.2-1)
[2021-09-29 16:19] LABS: HEMATOCRIT 42.6 % (35.4-49); HEMOGLOBIN 14.2 GM/dL (11.7-16.9); MCH 28.1 pg (25.7-33.7); MCHC 33.4 g/dl (32.0-35.9); MEAN CELL VOLUME 84.2 fl (80-96); MEAN PLT VOLUME 8.9 fl (7.5-11.1); PLATELET COUNT 290 10^3/uL (134-434); RBC 5.06 M/mm3 (4.00-5.60); RDW 15.5 % (11.9-15.9); WHITE BLOOD COUNT 9.4 K/mm3 (4.0-10.0)
[2021-09-29] MEDS: chlordiazePOXIDE HCL 25 MG CAPSULE PO SCH ×2 (17:45→22:18)
[2021-09-29 19:06] VITALS: BMI 32.8
[2021-09-29] MEDS: MELATONIN 5 MG TABLETS PO SCH (22:18)
[2021-09-29] MEDS: THIAMINE HCL 100 MG TABLET (FP) PO SCH (22:18)
[2021-09-29] MEDS: COLCHICINE 0.6 MG TAB PO SCH (22:18)
[2021-09-30] MEDS ORDERED: BUPRENORPHINE HCL 150 MCG FILM BC ONE (04:44)
[2021-09-30] MEDS ORDERED: BUPRENORPHINE HCL 75 MCG FILM BC ONE (04:45)
[2021-09-30] MEDS ORDERED: BUPRENORPHINE HCL 150 MCG, BUPRENORPHINE HCL 75 MCG BC SCH (06:00)
[2021-09-30] MEDS: chlordiazePOXIDE HCL 25 MG CAPSULE PO SCH ×4 (06:06→22:12)
[2021-09-30] MEDS: hydrOXYzine PAMOATE 25 MG CAPSULE (FP) PO SCH ×5 (06:06→22:12)
[2021-09-30] MEDS: amLODIPine BESYLATE 10 MG TABLET (FP) PO SCH (10:15)
[2021-09-30] MEDS: PRENATAL VITAMINS W/ FOLIC ACID TABLET (FP) PO SCH (10:15)
[2021-09-30] MEDS: ASPIRIN 81 MG CHEWABLE TABLETS PO SCH (10:15)
[2021-09-30] MEDS: ATORVASTATIN CA 20 MG TABLET (FP) PO SCH (10:15)
[2021-09-30] MEDS: COLCHICINE 0.6 MG TAB PO SCH ×2 (10:17→22:12)
[2021-09-30] MEDS: ATENOLOL 50 MG TABLET (FP) PO SCH (10:17)
[2021-09-30] MEDS: PANTOPRAZOLE 20 MG TABLET PO SCH (10:19)
[2021-09-30] MEDS ORDERED: ATENOLOL 50 MG TABLET (FP) PO ONE (14:00)
[2021-09-30] MEDS: THIAMINE HCL 100 MG TABLET (FP) PO SCH (22:12)
[2021-09-30] MEDS: MELATONIN 5 MG TABLETS PO SCH (22:13)
[2021-10-01] MEDS: chlordiazePOXIDE HCL 25 MG CAPSULE PO SCH ×4 (05:48→23:11)
[2021-10-01] MEDS ORDERED: methaDONE HCL 10 MG TABLET (FOR DETOX USE ONLY) PO ONE (06:00)
[2021-10-01] MEDS ORDERED: BUPRENORPHINE HCL 450 MCG FILM BC SCH (06:00)
[2021-10-01] MEDS: hydrOXYzine PAMOATE 25 MG CAPSULE (FP) PO SCH ×5 (07:40→23:11)
[2021-10-01] MEDS: PANTOPRAZOLE 20 MG TABLET PO SCH (10:09)
[2021-10-01] MEDS: PRENATAL VITAMINS W/ FOLIC ACID TABLET (FP) PO SCH (10:09)
[2021-10-01] MEDS: ATORVASTATIN CA 20 MG TABLET (FP) PO SCH (10:10)
[2021-10-01] MEDS: amLODIPine BESYLATE 10 MG TABLET (FP) PO SCH (10:10)
[2021-10-01] MEDS: ATENOLOL 50 MG TABLET (FP) PO SCH (10:10)
[2021-10-01] MEDS: COLCHICINE 0.6 MG TAB PO SCH ×2 (10:10→23:11)
[2021-10-01] MEDS: ASPIRIN 81 MG CHEWABLE TABLETS PO SCH (10:10)
[2021-10-01 16:09] LABS: SARS-CoV-2 NAA Not Detected (Not Detected)
[2021-10-01] MEDS: METHOCARBAMOL 500 MG TABLET PO PRN (18:26)
[2021-10-01] MEDS: MELATONIN 5 MG TABLETS PO SCH (23:11)
[2021-10-01] MEDS: THIAMINE HCL 100 MG TABLET (FP) PO SCH (23:11)
[2021-10-02] MEDS ORDERED: chlordiazePOXIDE HCL 10 MG CAPSULE PO PRN
[2021-10-02] MEDS: hydrOXYzine PAMOATE 25 MG CAPSULE (FP) PO SCH ×5 (05:33→22:24)
[2021-10-02] MEDS: chlordiazePOXIDE HCL 10 MG CAPSULE PO SCH ×4 (05:33→22:24)
[2021-10-02] MEDS ORDERED: BUPRENORPHINE/NALOXONE 4 MG/1 MG FILM PACKET SL SCH (06:00)
[2021-10-02] MEDS: PRENATAL VITAMINS W/ FOLIC ACID TABLET (FP) PO SCH (10:12)
[2021-10-02] MEDS: COLCHICINE 0.6 MG TAB PO SCH ×2 (10:13→22:24)
[2021-10-02] MEDS: ASPIRIN 81 MG CHEWABLE TABLETS PO SCH (10:13)
[2021-10-02] MEDS: amLODIPine BESYLATE 10 MG TABLET (FP) PO SCH (10:13)
[2021-10-02] MEDS: ATORVASTATIN CA 20 MG TABLET (FP) PO SCH (10:13)
[2021-10-02] MEDS: ATENOLOL 50 MG TABLET (FP) PO SCH (10:13)
[2021-10-02] MEDS: PANTOPRAZOLE 20 MG TABLET PO SCH (10:13)
[2021-10-02] MEDS: METHOCARBAMOL 500 MG TABLET PO PRN ×2 (10:15→18:13)
[2021-10-02] MEDS: THIAMINE HCL 100 MG TABLET (FP) PO SCH (22:24)
[2021-10-02] MEDS: MELATONIN 5 MG TABLETS PO SCH (22:24)
[2021-10-03] MEDS ORDERED: chlordiazePOXIDE HCL 10 MG CAPSULE PO SCH (05:00)
[2021-10-03] MEDS: hydrOXYzine PAMOATE 25 MG CAPSULE (FP) PO SCH (05:33)
[2021-10-03] MEDS ORDERED: BUPRENORPHINE/NALOXONE 8 MG/2 MG FILM PACKET SL ONE (06:00)
[2021-10-03 06:44] VITALS: BP 127/77; PULSE 82; TEMP 97.5
[2021-10-04] MEDS ORDERED: chlordiazePOXIDE HCL 10 MG CAPSULE PO ONE (05:00)
== END 2021-10-03 09:16 | disposition home or self-care (01) | DRG 773 ==
LOC: YASAS 11:22 → Y6N 12:33
PROVIDERS: ADMIT Allergy & Immunology; ATTEND Allergy & Immunology
PROC: HZ2ZZZZ Detoxification Services for Substance Abuse Treatment (ICD-10-PCS; principal; 2021-09-29)
DX: F10.230 Alcohol dependence with withdrawal, uncomplicated (principal); F11.23 Opioid dependence with withdrawal; F13.230 Sedative, hypnotic or anxiolytic dependence with withdrawal, uncomplicated; E78.5 Hyperlipidemia, unspecified; I10 Essential (primary) hypertension; M10.9 Gout, unspecified; Z86.19 Personal history of other infectious and parasitic diseases; Z87.19 Personal history of other diseases of the digestive system; Z87.891 Personal history of nicotine dependence
CPT/HCPCS: 36415; 71045-TC-FY; 80053; 85027; 86593; 86780; 87811; C9803-CS; J0735; U0003; U0005

== ENCOUNTER 2022-01-28 19:23 | Inpatient (IN) | payer OTHER ==
[2022-01-29 00:14] VITALS: BMI 32.5
[2022-01-29] MEDS ORDERED: DICYCLOMINE HCL 10 MG CAPSULE PO PRN (03:58)
[2022-01-29] MEDS ORDERED: ONDANSETRON *ODT* 4 MG TABLET SL PRN (03:58)
[2022-01-29] MEDS ORDERED: IBUPROFEN 600 MG TABLET (FP) PO PRN (03:58)
[2022-01-29] MEDS ORDERED: MAG HYDROX/AL HYDROX/SIMETH 30 ML UNIT-DOSE CUP PO PRN (03:58)
[2022-01-29] MEDS ORDERED: BENZOCAINE/MENTHOL (CHLORASEPTIC ) LOZENGE MM PRN (03:58)
[2022-01-29] MEDS ORDERED: MAGNESIUM HYDROX 2400MG/30ML ORAL SUSPENSION 30 ML CUP PO PRN (03:58)
[2022-01-29] MEDS ORDERED: LOPERAMIDE HCL 2 MG CAPSULE PO PRN (03:58)
[2022-01-29] MEDS ORDERED: IBUPROFEN 400 MG TABLET (FP) PO PRN (03:58)
[2022-01-29] MEDS ORDERED: ACETAMINOPHEN 325 MG TABLET (FP) PO PRN (03:58)
[2022-01-29] MEDS ORDERED: BISMUTH SUBSALICYLATE 524 MG/30 ML PO PRN (03:58)
[2022-01-29] MEDS ORDERED: MAGNESIUM CITRATE 300 ML BOTTLE PO PRN (03:58)
[2022-01-29] MEDS ORDERED: cloNIDine HCL 0.1 MG TABLET PO ONE ×2 (04:01→09:06)
[2022-01-29] MEDS: ACETAMINOPHEN 325 MG TABLET (FP) PO PRN (04:55)
[2022-01-29] MEDS ORDERED: BUPRENORPHINE HCL 150 MCG, BUPRENORPHINE HCL 75 MCG BC PRN (09:06)
[2022-01-29] MEDS ORDERED: BUPRENORPHINE HCL 150 MCG, BUPRENORPHINE HCL 75 MCG BC ONE (09:06)
[2022-01-29] MEDS: METHOCARBAMOL 500 MG TABLET PO PRN ×2 (10:26→18:20)
[2022-01-29] MEDS: ASPIRIN 81 MG CHEWABLE TABLETS PO SCH (10:26)
[2022-01-29] MEDS: amLODIPine BESYLATE 10 MG TABLET (FP) PO SCH (10:26)
[2022-01-29] MEDS: PRENATAL VITAMINS W/ FOLIC ACID TABLET (FP) PO SCH (10:27)
[2022-01-29] MEDS: ATENOLOL 50 MG TABLET (FP) PO SCH (11:16)
[2022-01-29] MEDS: diazePAM 5 MG TABLET PO PRN ×3 (11:20→22:53)
[2022-01-29] MEDS ORDERED: cloNIDine HCL 0.1 MG TABLET PO PRN (13:06)
[2022-01-29 14:32] LABS: HEMATOCRIT 40.7 % (35.4-49); HEMOGLOBIN 13.4 GM/dL (11.7-16.9); MCH 26.8 pg (25.7-33.7); MEAN CELL VOLUME 81.2 fl (80-96); MEAN PLT VOLUME 9.4 fl (7.5-11.1); PLATELET COUNT 243 10^3/uL (134-434); RBC 5.01 M/mm3 (4.00-5.60)
[2022-01-29 15:23] LABS: ALBUMIN 4.1 g/dl (3.4-5.0)
[2022-01-29 15:26] LABS: CREATININE 1.4 mg/dL (0.55-1.3)
[2022-01-29 15:27] LABS: TOT PROT 6.9 g/dl (6.4-8.2)
[2022-01-29 15:28] LABS: CALCIUM 9.5 mg/dL (8.5-10.1)
[2022-01-29 15:29] LABS: BLOOD UREA NITROGEN 15.3 mg/dL (7-18)
[2022-01-29] MEDS: THIAMINE HCL 100 MG TABLET (FP) PO SCH (22:53)
[2022-01-29] MEDS: MELATONIN 5 MG TABLETS PO SCH (22:53)
[2022-01-30] MEDS ORDERED: BUPRENORPHINE HCL 150 MCG, BUPRENORPHINE HCL 75 MCG BC PRN
[2022-01-30] MEDS: BUPRENORPHINE HCL 150 MCG, BUPRENORPHINE HCL 75 MCG BC SCH ×2 (06:01→18:08)
[2022-01-30] MEDS: ACETAMINOPHEN 325 MG TABLET (FP) PO PRN (06:02)
[2022-01-30] MEDS: ASPIRIN 81 MG CHEWABLE TABLETS PO SCH (10:49)
[2022-01-30] MEDS: PRENATAL VITAMINS W/ FOLIC ACID TABLET (FP) PO SCH (10:50)
[2022-01-30] MEDS: METHOCARBAMOL 500 MG TABLET PO PRN (10:50)
[2022-01-30] MEDS: amLODIPine BESYLATE 10 MG TABLET (FP) PO SCH (10:50)
[2022-01-30] MEDS: diazePAM 5 MG TABLET PO PRN ×2 (10:50→22:17)
[2022-01-30] MEDS: ATENOLOL 50 MG TABLET (FP) PO SCH (10:51)
[2022-01-30] MEDS ORDERED: ASPIRIN 81 MG PO SCH (20:30)
[2022-01-30] MEDS ORDERED: ATENOLOL PO SCH (22:00)
[2022-01-30] MEDS: THIAMINE HCL 100 MG TABLET (FP) PO SCH (22:17)
[2022-01-30] MEDS: ATORVASTATIN CA 20 MG TABLET (FP) PO SCH (22:18)
[2022-01-30] MEDS: MELATONIN 5 MG TABLETS PO SCH (22:18)
[2022-01-31] MEDS ORDERED: BUPRENORPHINE HCL 450 MCG FILM BC PRN
[2022-01-31] MEDS: BUPRENORPHINE HCL 450 MCG FILM BC SCH ×2 (05:38→17:55)
[2022-01-31] MEDS: ACETAMINOPHEN 325 MG TABLET (FP) PO PRN (05:40)
[2022-01-31] MEDS: COLCHICINE 0.6 MG TAB PO SCH ×2 (10:46→22:39)
[2022-01-31] MEDS: amLODIPine BESYLATE 10 MG TABLET (FP) PO SCH (10:46)
[2022-01-31] MEDS: ATENOLOL 50 MG TABLET (FP) PO SCH (10:46)
[2022-01-31] MEDS: PRENATAL VITAMINS W/ FOLIC ACID TABLET (FP) PO SCH (10:46)
[2022-01-31] MEDS: ASPIRIN 81 MG CHEWABLE TABLETS PO SCH (10:46)
[2022-01-31] MEDS: METHOCARBAMOL 500 MG TABLET PO PRN (17:55)
[2022-01-31] MEDS: MELATONIN 5 MG TABLETS PO SCH (22:39)
[2022-01-31] MEDS: ATORVASTATIN CA 20 MG TABLET (FP) PO SCH (22:39)
[2022-01-31] MEDS: THIAMINE HCL 100 MG TABLET (FP) PO SCH (22:39)
[2022-02-01] MEDS: BUPRENORPHINE/NALOXONE 4 MG/1 MG FILM PACKET SL SCH ×2 (05:41→17:35)
[2022-02-01] MEDS: METHOCARBAMOL 500 MG TABLET PO PRN (10:50)
[2022-02-01] MEDS: ASPIRIN 81 MG CHEWABLE TABLETS PO SCH (10:51)
[2022-02-01] MEDS: COLCHICINE 0.6 MG TAB PO SCH ×2 (10:51→22:10)
[2022-02-01] MEDS: PRENATAL VITAMINS W/ FOLIC ACID TABLET (FP) PO SCH (10:51)
[2022-02-01] MEDS: ATENOLOL 50 MG TABLET (FP) PO SCH (10:51)
[2022-02-01] MEDS: amLODIPine BESYLATE 10 MG TABLET (FP) PO SCH (10:51)
[2022-02-01 18:36] VITALS: RESP 18
[2022-02-01] MEDS: THIAMINE HCL 100 MG TABLET (FP) PO SCH (22:10)
[2022-02-01] MEDS: MELATONIN 5 MG TABLETS PO SCH (22:10)
[2022-02-01] MEDS: ATORVASTATIN CA 20 MG TABLET (FP) PO SCH (22:10)
[2022-02-02] MEDS ORDERED: BUPRENORPHINE/NALOXONE 8 MG/2 MG FILM PACKET SL ONE (06:00)
[2022-02-02 07:44] VITALS: BP 135/76; PULSE 96; TEMP 97.1
== END 2022-02-02 09:00 | disposition home or self-care (01) | DRG 773 ==
LOC: YASAS 19:23 → Y6N 01-29 04:05 → UNDOADMIN 01-29 04:05
PROVIDERS: ADMIT Allergy & Immunology; ATTEND Surgery
PROC: HZ2ZZZZ Detoxification Services for Substance Abuse Treatment (ICD-10-PCS; principal; 2022-01-29)
DX: F11.23 Opioid dependence with withdrawal (principal); F10.230 Alcohol dependence with withdrawal, uncomplicated; F31.9 Bipolar disorder, unspecified; I10 Essential (primary) hypertension; E78.5 Hyperlipidemia, unspecified; M10.9 Gout, unspecified; Z87.891 Personal history of nicotine dependence; Z86.11 Personal history of tuberculosis; Z86.19 Personal history of other infectious and parasitic diseases
CPT/HCPCS: 36415; 71046-TC-FY; 80053; 85027; 86593; 86780; 87811; 93005; 93010; C9803-CS; U0003; U0005

== ENCOUNTER 2022-08-14 10:44 | Inpatient (IN) | payer OTHER ==
[2022-08-14 11:15] VITALS: BMI 34.2
[2022-08-14] MEDS ORDERED: BISMUTH SUBSALICYLATE 524 MG/30 ML PO PRN (14:36)
[2022-08-14] MEDS ORDERED: NALOXONE HCL (KLOXXADO) 8 MG SPRAY NS PRN (14:36)
[2022-08-14] MEDS ORDERED: IBUPROFEN 600 MG TABLET (FP) PO PRN (14:36)
[2022-08-14] MEDS ORDERED: LOPERAMIDE HCL 2 MG CAPSULE PO PRN (14:36)
[2022-08-14] MEDS ORDERED: NALOXONE HCL 0.4 MG/ML VIAL IM PRN (14:36)
[2022-08-14] MEDS ORDERED: BENZOCAINE/MENTHOL (CHLORASEPTIC ) LOZENGE MM PRN (14:36)
[2022-08-14] MEDS ORDERED: ACETAMINOPHEN 325 MG TABLET (FP) PO PRN (14:36)
[2022-08-14] MEDS ORDERED: DICYCLOMINE HCL 10 MG CAPSULE PO PRN (14:36)
[2022-08-14] MEDS ORDERED: MAG HYDROX/AL HYDROX/SIMETH 30 ML UNIT-DOSE CUP PO PRN (14:36)
[2022-08-14] MEDS ORDERED: POLYETHYLENE GLYCOL (HEALTHYLAX) 3350 17 GM PACKET PO PRN (14:36)
[2022-08-14] MEDS ORDERED: ONDANSETRON *ODT* 4 MG TABLET SL PRN (14:36)
[2022-08-14] MEDS ORDERED: MAGNESIUM HYDROX 2400MG/30ML ORAL SUSPENSION 30 ML CUP PO PRN (14:36)
[2022-08-14] MEDS ORDERED: hydrOXYzine PAMOATE 25 MG CAPSULE (FP) PO PRN (14:36)
[2022-08-14] MEDS ORDERED: IBUPROFEN 400 MG TABLET (FP) PO PRN (14:36)
[2022-08-14] MEDS ORDERED: methaDONE HCL 10 MG TABLET (FOR DETOX USE ONLY) PO ONE (14:39)
[2022-08-14] MEDS: chlordiazePOXIDE HCL 25 MG CAPSULE PO SCH ×2 (18:00→22:10)
[2022-08-14] MEDS: ACETAMINOPHEN 325 MG TABLET (FP) PO PRN (18:03)
[2022-08-14] MEDS: ATORVASTATIN CA 20 MG TABLET (FP) PO SCH (22:10)
[2022-08-14] MEDS: THIAMINE HCL 100 MG TABLET (FP) PO SCH (22:10)
[2022-08-14] MEDS: COLCHICINE 0.6 MG CAP PO SCH (22:10)
[2022-08-14] MEDS: MELATONIN 5 MG TABLETS PO SCH (22:11)
[2022-08-15] MEDS: chlordiazePOXIDE HCL 25 MG CAPSULE PO SCH ×4 (05:29→22:16)
[2022-08-15] MEDS: ATENOLOL 50 MG TABLET (FP) PO SCH (10:39)
[2022-08-15] MEDS: ASPIRIN 81 MG CHEWABLE TABLETS PO SCH (10:39)
[2022-08-15] MEDS: amLODIPine BESYLATE 10 MG TABLET (FP) PO SCH (10:39)
[2022-08-15] MEDS: PRENATAL VITAMINS W/ FOLIC ACID TABLET (FP) PO SCH (10:41)
[2022-08-15] MEDS: COLCHICINE 0.6 MG CAP PO SCH ×2 (10:42→22:15)
[2022-08-15] MEDS: NAPROXEN 500 MG TABLET PO PRN (18:11)
[2022-08-15] MEDS: ATORVASTATIN CA 20 MG TABLET (FP) PO SCH (22:14)
[2022-08-15] MEDS: THIAMINE HCL 100 MG TABLET (FP) PO SCH (22:15)
[2022-08-15] MEDS: MELATONIN 5 MG TABLETS PO SCH (22:15)
[2022-08-16] MEDS: chlordiazePOXIDE HCL 25 MG CAPSULE PO SCH ×4 (05:39→22:17)
[2022-08-16] MEDS ORDERED: methaDONE HCL 10 MG TABLET (FOR DETOX USE ONLY) PO ONE (10:00)
[2022-08-16] MEDS: PRENATAL VITAMINS W/ FOLIC ACID TABLET (FP) PO SCH (10:30)
[2022-08-16] MEDS: ATENOLOL 50 MG TABLET (FP) PO SCH (10:31)
[2022-08-16] MEDS: COLCHICINE 0.6 MG CAP PO SCH ×2 (10:31→22:15)
[2022-08-16] MEDS: ASPIRIN 81 MG CHEWABLE TABLETS PO SCH (10:31)
[2022-08-16] MEDS: amLODIPine BESYLATE 10 MG TABLET (FP) PO SCH (10:31)
[2022-08-16] MEDS: NAPROXEN 500 MG TABLET PO PRN (18:06)
[2022-08-16] MEDS: ATORVASTATIN CA 20 MG TABLET (FP) PO SCH (22:15)
[2022-08-16] MEDS: MELATONIN 5 MG TABLETS PO SCH (22:15)
[2022-08-16] MEDS: THIAMINE HCL 100 MG TABLET (FP) PO SCH (22:15)
[2022-08-16] MEDS: ACETAMINOPHEN 325 MG TABLET (FP) PO PRN (22:17)
[2022-08-17] MEDS: chlordiazePOXIDE HCL 10 MG CAPSULE PO SCH ×4 (05:32→22:39)
[2022-08-17] MEDS: PRENATAL VITAMINS W/ FOLIC ACID TABLET (FP) PO SCH (10:58)
[2022-08-17] MEDS: ATENOLOL 50 MG TABLET (FP) PO SCH (10:59)
[2022-08-17] MEDS: ASPIRIN 81 MG CHEWABLE TABLETS PO SCH (10:59)
[2022-08-17] MEDS: COLCHICINE 0.6 MG CAP PO SCH ×2 (10:59→22:40)
[2022-08-17] MEDS: amLODIPine BESYLATE 10 MG TABLET (FP) PO SCH (10:59)
[2022-08-17] MEDS: ACETAMINOPHEN 325 MG TABLET (FP) PO PRN (17:21)
[2022-08-17 20:40] LABS: URINE APPEARANCE CLEAR; URINE BILIRUBIN NEGATIVE (NEGATIVE); URINE COLOR YELLOW; URINE GLUCOSE (UA) NEGATIVE (NEGATIVE); URINE KETONE TRACE (NEGATIVE); URINE LEUK ESTERASE NEGATIVE (NEGATIVE); URINE NITRITE NEGATIVE (NEGATIVE); URINE PROTEIN NEGATIVE (NEGATIVE); URINE UROBILINOGEN 0.2 mg/dL (0.2-1.0)
[2022-08-17] MEDS: MELATONIN 5 MG TABLETS PO SCH (22:39)
[2022-08-17] MEDS: THIAMINE HCL 100 MG TABLET (FP) PO SCH (22:39)
[2022-08-17] MEDS: ATORVASTATIN CA 20 MG TABLET (FP) PO SCH (22:39)
[2022-08-18] MEDS: chlordiazePOXIDE HCL 10 MG CAPSULE PO SCH ×2 (05:43→17:15)
[2022-08-18] MEDS ORDERED: methaDONE HCL 10 MG TABLET (FOR DETOX USE ONLY) PO ONE (10:00)
[2022-08-18] MEDS: COLCHICINE 0.6 MG CAP PO SCH (10:08)
[2022-08-18] MEDS: PRENATAL VITAMINS W/ FOLIC ACID TABLET (FP) PO SCH (10:08)
[2022-08-18] MEDS: ASPIRIN 81 MG CHEWABLE TABLETS PO SCH (10:08)
[2022-08-18] MEDS: amLODIPine BESYLATE 10 MG TABLET (FP) PO SCH (10:09)
[2022-08-18] MEDS: ATENOLOL 50 MG TABLET (FP) PO SCH (10:09)
[2022-08-18] MEDS: MELATONIN 5 MG TABLETS PO SCH (22:05)
[2022-08-18] MEDS: ATORVASTATIN CA 20 MG TABLET (FP) PO SCH (22:05)
[2022-08-18] MEDS: THIAMINE HCL 100 MG TABLET (FP) PO SCH (22:05)
[2022-08-18] MEDS: COLCHICINE 0.6 MG TAB PO SCH (22:07)
[2022-08-19] MEDS ORDERED: chlordiazePOXIDE HCL 10 MG CAPSULE PO ONE (05:00)
[2022-08-19 06:06] VITALS: TEMP 97.5
[2022-08-19] MEDS: ASPIRIN 81 MG CHEWABLE TABLETS PO SCH (09:02)
[2022-08-19] MEDS: ATENOLOL 50 MG TABLET (FP) PO SCH (09:02)
[2022-08-19] MEDS: PRENATAL VITAMINS W/ FOLIC ACID TABLET (FP) PO SCH (09:02)
[2022-08-19] MEDS: amLODIPine BESYLATE 10 MG TABLET (FP) PO SCH (09:02)
[2022-08-19] MEDS: COLCHICINE 0.6 MG TAB PO SCH (09:02)
[2022-08-19 09:32] VITALS: BP 123/79; PULSE 98; RESP 17
== END 2022-08-19 09:29 | disposition home or self-care (01) | DRG 773 ==
LOC: YASAS 10:44 → Y6N 15:05
PROVIDERS: ADMIT Allergy & Immunology; ATTEND Surgery
PROC: HZ2ZZZZ Detoxification Services for Substance Abuse Treatment (ICD-10-PCS; principal; 2022-08-14)
DX: F11.23 Opioid dependence with withdrawal (principal); F10.230 Alcohol dependence with withdrawal, uncomplicated; F31.9 Bipolar disorder, unspecified; I10 Essential (primary) hypertension; M10.9 Gout, unspecified; R76.11 Nonspecific reaction to tuberculin skin test without active tuberculosis; Z87.891 Personal history of nicotine dependence; Z86.19 Personal history of other infectious and parasitic diseases
CPT/HCPCS: 71045-TC-FY; 81003; C9803-CS; U0003; U0005